=== PATIENT | male | born 1985 | race Caucasian/White ===

== ENCOUNTER 2018-09-12 23:01 | Inpatient (IN) | payer SELFPAY ==
[~2018-09-12] VITALS: Ht 175.3 cm; Wt 85.4 kg
[2018-09-12] MEDS ORDERED: ARIP5TAB8 PO (23:27)
[2018-09-12 23:35] LABS: BASOPHILS % (AUTO) 0.5 % (0.0-2.0); HEMATOCRIT 40.2 % (41-53); HEMOGLOBIN 13.6 g/dL (13.5-17.5); LYMPHOCYTES # (AUTO) 1.9 K/uL (1.0-4.8); LYMPHOCYTES % (AUTO) 19.8 % (22.0-44.0); MEAN CORPUSCULAR HEMOGLOBIN 29.7 pg (26.0-34.0); MEAN CORPUSCULAR HGB CONC 33.9 G/dL (31.0-37.0); MEAN CORPUSCULAR VOLUME 87 fL (80-100); MONOCYTES # (AUTO) 0.9 K/uL (0.1-1.0); MONOCYTES % (AUTO) 8.8 % (2.0-9.0); NEUTROPHILS # (AUTO) 6.8 K/uL (1.8-7.7); NEUTROPHILS % (AUTO) 69.9 % (40.0-70.0); PLATELET COUNT (AUTO) 351 K/uL (150-450)
[2018-09-12 23:56] LABS: ALANINE AMINOTRANSFERASE 56 U/L (12-78); ALBUMIN 3.7 g/dL (3.4-5.0); ALKALINE PHOSPHATASE 68 U/L (46-116); ANION GAP 8 mmol/L (8-16); ASPARTATE AMINOTRANSFERASE 24 U/L (15-37); BILIRUBIN,TOTAL 0.9 mg/dL (0.1-1.0); CALCIUM, TOTAL 8.8 mg/dL (8.8-10.5); CARBON DIOXIDE 28 mmol/L (22-29); CHLORIDE 106 mmol/L (98-107); CREATININE 0.72 mg/dL (0.60-1.30); GLOMERULAR FILTR. RATE CALC > 60 mL/min (>60); GLUCOSE,RANDOM 101 mg/dL (70-110); POTASSIUM 3.7 mmol/L (3.5-5.1); SODIUM SERUM 142 mmol/L (136-145); TOTAL PROTEIN, SERUM 7.7 g/dL (6.4-8.2)
[2018-09-13 00:06] LABS: UREA NITROGEN, BLOOD 20 mg/dL (7-18)
[2018-09-13] MEDS ORDERED: ZOLPIDEM TARTRATE 10 MG TABLET PO PRN (00:45)
[2018-09-13 02:11] VITALS: BP 138/70
[2018-09-13] MEDS ORDERED: ALBUTEROL SULFATE HFA 90 MCG/PUFF 8 GM INHALER IH PRN (07:15)
[2018-09-13] MEDS ORDERED: MAG HYDROX/AL HYDROX/SIMETH ES 30 ML SUSPENSION UDCUP PO PRN (07:15)
[2018-09-13] MEDS ORDERED: ACETAMINOPHEN 325 MG TABLET PO PRN (07:15)
[2018-09-13] MEDS ORDERED: LOPERAMIDE HCL 2 MG CAPSULE PO PRN (07:15)
[2018-09-13] MEDS ORDERED: MAGNESIUM HYDROXIDE SUSPENSION 30 ML UDCUP PO PRN (07:15)
[2018-09-13] MEDS ORDERED: ONDANSETRON HCL 4 MG TABLET PO PRN (07:15)
[2018-09-13] MEDS ORDERED: PETROLATUM,WHITE 71 GM JELLY TP PRN (07:15)
[2018-09-13] MEDS ORDERED: NICOTINE 14 MG/24 HOUR PATCH TD PRN (07:15)
[2018-09-13] MEDS ORDERED: DOCUSATE SODIUM 100 MG CAPSULE PO PRN (07:15)
[2018-09-13 08:00] VITALS: BP 129/74
[2018-09-13] MEDS: ESCITALOPRAM OXALATE 10 MG TABLET PO SCH (11:16)
[2018-09-13] MEDS: LORazepam 2 MG TABLET PO PRN (16:36)
[2018-09-13 18:24] VITALS: BP 140/96
[2018-09-14 06:43] LABS: BASOPHILS % (AUTO) 0.3 % (0.0-2.0); EOSINOPHILS % (AUTO) 2.9 % (1.0-6.0); HEMATOCRIT 38.8 % (41-53); HEMOGLOBIN 13.5 g/dL (13.5-17.5); LYMPHOCYTES # (AUTO) 1.1 K/uL (1.0-4.8); LYMPHOCYTES % (AUTO) 11.8 % (22.0-44.0); MEAN CORPUSCULAR HEMOGLOBIN 30.3 pg (26.0-34.0); MEAN CORPUSCULAR HGB CONC 34.8 G/dL (31.0-37.0); MEAN CORPUSCULAR VOLUME 87 fL (80-100); MONOCYTES # (AUTO) 0.9 K/uL (0.1-1.0); MONOCYTES % (AUTO) 9.3 % (2.0-9.0); NEUTROPHILS # (AUTO) 7.4 K/uL (1.8-7.7); NEUTROPHILS % (AUTO) 75.7 % (40.0-70.0); PLATELET COUNT (AUTO) 313 K/uL (150-450); RED BLOOD CELL COUNT(AUTO) 4.45 MIL/uL (4.50-5.90); RED CELL DISTRIBUTION WIDTH 13.5 % (11.5-14.5)
[2018-09-14 07:15] LABS: HEMOGLOBIN A1C 5.1 % (4.5-6.2)
[2018-09-14 07:23] LABS: ALANINE AMINOTRANSFERASE 43 U/L (12-78); ALBUMIN 3.7 g/dL (3.4-5.0); ALKALINE PHOSPHATASE 72 U/L (46-116); ANION GAP 5 mmol/L (8-16); ASPARTATE AMINOTRANSFERASE 21 U/L (15-37); BILIRUBIN,TOTAL 1.4 mg/dL (0.1-1.0); CALCIUM, TOTAL 8.5 mg/dL (8.8-10.5); CARBON DIOXIDE 30 mmol/L (22-29); CHLORIDE 103 mmol/L (98-107); CHOL/HDL RATIO 3.8 (4.2-7.3); CHOLESTEROL 158 mg/dL (131-200); CREATININE 0.78 mg/dL (0.60-1.30); FREE T4 (FREE THYROXINE) 0.87 ng/dL (0.76-1.46); GLOMERULAR FILTR. RATE CALC > 60 mL/min (>60); GLUCOSE,RANDOM 84 mg/dL (70-110); HDL CHOLESTEROL 42 mg/dL (40-60); LDL CHOL (CALC.) 104 mg/dL (0-130); POTASSIUM 4.3 mmol/L (3.5-5.1); SODIUM SERUM 138 mmol/L (136-145); THYROID STIMULATING HORMONE 0.69 uIU/mL (0.36-3.74); TOTAL PROTEIN, SERUM 7.2 g/dL (6.4-8.2); TRIGLYCERIDES 58 mg/dL (15-150); UREA NITROGEN, BLOOD 14 mg/dL (7-18)
[2018-09-14] MEDS: ESCITALOPRAM OXALATE 10 MG TABLET PO SCH (09:36)
[2018-09-14] MEDS: LORazepam 2 MG TABLET PO PRN ×2 (09:38→18:17)
[2018-09-14] MEDS: ARIPiprazole 10 MG TABLET PO SCH (10:45)
[2018-09-14 11:00] VITALS: BP 141/91
[2018-09-14] MEDS: HALOPERIDOL 5 MG TABLET PO PRN ×2 (11:04→18:17)
[2018-09-14] MEDS: GuaiFENesin/D-METHORPHAN [SUGAR-FREE] 200-20MG/10 ML SYRUP UDCUP PO PRN (11:05)
[2018-09-14] MEDS: IBUPROFEN 400 MG TABLET PO PRN (11:05)
[2018-09-14] MEDS: BACITRACIN 28.4 GM OINTMENT TP SCH (16:35)
[2018-09-14 20:52] VITALS: BP 142/92
[2018-09-15] MEDS: BACITRACIN 28.4 GM OINTMENT TP SCH ×2 (09:00→17:00)
[2018-09-15] MEDS: ESCITALOPRAM OXALATE 10 MG TABLET PO SCH (09:16)
[2018-09-15] MEDS: ARIPiprazole 10 MG TABLET PO SCH (09:16)
[2018-09-15] MEDS: GuaiFENesin/D-METHORPHAN [SUGAR-FREE] 200-20MG/10 ML SYRUP UDCUP PO PRN (09:17)
[2018-09-15] MEDS: IBUPROFEN 400 MG TABLET PO PRN (09:17)
[2018-09-15] MEDS: LORazepam 2 MG TABLET PO PRN ×2 (09:18→16:14)
[2018-09-15] MEDS: HALOPERIDOL 5 MG TABLET PO PRN ×2 (09:18→16:14)
[2018-09-15 10:03] VITALS: BP 124/79
[2018-09-15 22:05] VITALS: BP 134/81
[2018-09-16 08:05] VITALS: BP 139/88
[2018-09-16] MEDS: LORazepam 2 MG TABLET PO PRN (09:32)
[2018-09-16] MEDS: ESCITALOPRAM OXALATE 10 MG TABLET PO SCH (09:32)
[2018-09-16] MEDS: HALOPERIDOL 5 MG TABLET PO PRN (09:32)
[2018-09-16] MEDS: BACITRACIN 28.4 GM OINTMENT TP SCH (09:33)
[2018-09-16] MEDS: ARIPiprazole 10 MG TABLET PO SCH (09:33)
== END 2018-09-16 14:45 | disposition home or self-care (01) | DRG 885 ==
LOC: EMS 23:03 → 3EI 09-13 00:30
PROVIDERS: ADMIT Psychiatry & Neurology Child & Adolescent Psychiatry; ATTEND Psychiatry & Neurology Child & Adolescent Psychiatry
DX: F32.1 Major depressive disorder, single episode, moderate (principal); R45.851 Suicidal ideations; F10.10 Alcohol abuse, uncomplicated; F43.10 Post-traumatic stress disorder, unspecified; G40.909 Epilepsy, unspecified, not intractable, without status epilepticus; Z53.21 Procedure and treatment not carried out due to patient leaving prior to being seen by health care provider; F17.210 Nicotine dependence, cigarettes, uncomplicated; I10 Essential (primary) hypertension; K21.9 Gastro-esophageal reflux disease without esophagitis; Z89.512 Acquired absence of left leg below knee; Z23 Encounter for immunization; Z91.040 Latex allergy status; Z79.899 Other long term (current) drug therapy; Z71.41 Alcohol abuse counseling and surveillance of alcoholic; Z71.6 Tobacco abuse counseling
CPT/HCPCS: 83036; 84439; 84443; 90686; 99406; G0480